=== PATIENT | male | born 1985 | race Caucasian/White ===

== ENCOUNTER 2020-03-09 19:22 | Emergency (ER) | payer BC, SELFPAY ==
[2020-03-09 19:35] VITALS: BP 130/82; PULSE 92; RESP 20; TEMP 36.7; O2SAT 98; BMI 27.1
--- NOTE | 2020-03-09 19:52 | PC.NURSE ---
Blood Sugar 97.
[2020-03-09 19:57] LABS: POC Glucose,Bedside 97 (70-110)
--- NOTE | 2020-03-09 20:01 | HMH.EDUTC ---
[facility] [place] Disposition Clinical Impression: Common cold virus, COVID-19 virus test result unknown Disposition: Home, Self-Care Condition on Discharge: Good Instructions: Preventing the Spread of Coronavirus Discharge Instructions Additional Instructions: No sign of a bacterial infection. Likely viral. Viruses can take 7-14 days to run their course. Nasal saline and bulb syringe or nose Becca to remove nasal drainage to help with nasal congestion. Hard to eat, drink, sleep with nasal congestion so important to keep this cleaned out. Monitor temp. Tylenol or Motrin as needed for pain or fever Encourage fluids, water, Gatorade, Powerade, Pedialyte if /toddler/child Warm salt water gargles Warm fluids Sore throat lozenges Sleep elevated Humidifier/vaporizer covid swab was sent. These results are typically sent to the primary care or call back to [facility] for results. Be sure you follow-up in 2-3 days if no improvement so we can review the results and treat if necessary if you do not have a primary care, I recommend to get 1 but in the meantime, call for results. Follow-up immediately for new or worsening symptoms or no noticeable improvement over the next 48-72 hours. quarantine until covid test results known Referrals: Conor Encarnacion [Primary Care Provider] - Time of Disposition: 20:07 Medical Decision Making - Nazario Inquiry Pt receiving controlled substance: No Vital Signs: 03/09/20 19:35 Temperature 98.1 F Temperature Source Oral Pulse Rate [Right Brachial] 92 H Respiratory Rate 20 Blood Pressure [Right Arm] 130/82 Blood Pressure Mean [Right Arm] 98 Blood Pressure Source [Right Arm] Automatic Cuff Blood Pressure Position [Right Arm] Sitting 02 Sat by Pulse Oximetry 98 Oxygen Delivery Method Room Air - Lab Data Lab Results 03/09/20 19:49: POC Glucose [address] [facility] [place] HPI - General Chief complaint: Urgent Treatment Center Stated complaint: covid test request Time Seen by Provider: 03/09/20 20:01 Mode of Arrival: Ambulatory Source of Information: Patient Limitations: No Limitations Description of Symptoms (Recalled from Triage Doc. by RN): WEAKNESS, FATIGUE, BODY ACHES, COLD SWEATS, TRAVELED TO [facility] Symptoms (Recalled from RN notes): Yes Resp Symptoms (Recalled from RN notes): Yes Skin Symptoms (Recalled from RN notes): No MS Symptoms (Recalled from RN notes): No Functional Status (Recalled from RN notes): NONE - History of Present Illness Provider Complaint: 34 yr old male presents for low grade fever, n/v/d, runny nose and sob. Pt states he just returned from [place] on sat and returned to work yesterday and today he had a episode where he felt he was going to pass out with sob. Pt states at this time he feels better but wants a covid test to make sure. - Related Data Home Medications Medication Instructions Recorded Confirmed Gabapentin 600 mg PO DAILY 03/09/20 03/09/20 Allergies Allergy/AdvReac Type Severity Reaction Status Date / Time No Known Allergies Allergy Verified 03/09/20 19:33 - Worker's Comp Is this a Worker's Comp case?: No [facility] History - Hepatitis A Screen Drug use history?: No High risk sexual behaviors?: No History of sexually transmitted infection?: No Currently employed?: No Childcare worker?: No Do you have indoor plumbing?: Yes Do you have electricity?: Yes Attestation statement:: This patient has been screened for Hepatitis A risk factors. I have reviewed the patient's past medical history: Yes Medical History: Reports:: Diabetes Mellitus Type 2 Denies:: Cancer, Diabetes Mellitus Type 1, Internal Pacemaker, MRSA Other Surgeries: No: Pacemaker Amputation: No Fractures: Yes - Social History Smoking Status: Never smoker Alcohol Intake: never Occupational Status: employed ROS Obtained: Yes Systems reviewed as appropriate & no additional complaints - Constitutional Constitutional: Reports system reviewed and no additional complaints, exc
[2020-03-09 20:08] VITALS: BP 130/82; PULSE 92; RESP 20; TEMP 36.7; O2SAT 99
[2020-03-11 13:41] LABS: Covid-19 Nasal PCR Sendout Lex NOT DETECTED
== END 2020-03-09 20:35 | disposition home or self-care (01) ==
PROVIDERS: Emergency Provider Nurse Practitioner Family; PCP Family Medicine
DX: Z03.818 Encounter for observation for suspected exposure to other biological agents ruled out (principal); R50.9 Fever, unspecified; J00 Acute nasopharyngitis [common cold]; E11.9 Type 2 diabetes mellitus without complications
CPT/HCPCS: 82962; 99201; 99202; U0004